=== PATIENT | female | born 1955 | race Caucasian/White ===

== ENCOUNTER 2022-01-11 14:00 | Outpatient (RCR) | payer BC, SELFPAY | END 2022-02-23 13:31 | disposition home or self-care (01) | PROVIDERS: PCP Family Medicine; Visit Provider Family Medicine | DX: G57.01 Lesion of sciatic nerve, right lower limb (principal); M25.551 Pain in right hip; Z51.89 Encounter for other specified aftercare | CPT/HCPCS: 97140 ==